=== PATIENT | male | born 1985 | race African-American/Black ===

== ENCOUNTER 2017-05-20 20:33 | Emergency (ER) | payer SELFPAY ==
[~2017-05-20] VITALS: Ht 188 cm; Wt 78.0 kg
[2017-05-20] MEDS ORDERED: LIDOCAINE HCL 1% 20ML VIAL (Pyxis) INJ MC ONE (22:30)
[2017-05-20] MEDS ORDERED: IBUPROFEN 600MG TABLET PO ONE (22:30)
[2017-05-20] MEDS ORDERED: BACITRACIN ZINC OINT UDPKT TOP ONE (22:30)
[2017-05-20 23:02] VITALS: BP 109/52
== END 2017-05-20 23:45 | disposition home or self-care (01) ==
LOC: ER 21:07
DX: S01.81XA Laceration without foreign body of other part of head, initial encounter (principal); S00.83XA Contusion of other part of head, initial encounter; Y08.89XA Assault by other specified means, initial encounter; Y93.89 Activity, other specified; Y92.89 Other specified places as the place of occurrence of the external cause; Y99.8 Other external cause status
CPT/HCPCS: 12011; 99283; J3490; Z7610

== ENCOUNTER 2017-05-24 17:50 | Emergency (ER) | payer SELFPAY ==
[~2017-05-24] VITALS: Ht 188 cm; Wt 79.5 kg
[2017-05-24] MEDS ORDERED: CYCL5TAB PO (18:18)
[2017-05-24 18:24] VITALS: BP 124/60
[2017-05-24] MEDS ORDERED: BACITRACIN ZINC OINT UDPKT TOP ONE (18:30)
== END 2017-05-24 18:48 | disposition home or self-care (01) ==
LOC: ER 17:50
DX: Z48.02 Encounter for removal of sutures (principal)
CPT/HCPCS: 99283; Z7610

== ENCOUNTER 2020-03-07 21:08 | Emergency (ER) | payer BC ==
[~2020-03-07] VITALS: Ht 188 cm; Wt 77.0 kg
[~2020-03-07 21:08] MED LIST: CYCL5TAB PO
[2020-03-07] MEDS ORDERED: KETOROLAC 30MG/ML VIAL IM ONE (22:30)
[2020-03-07] MEDS ORDERED: HYDROCODONE/ACETAMINOPHEN 5/325MG TABLET PO ONE (23:15)
[2020-03-08 00:48] VITALS: BP 135/80
== END 2020-03-08 00:49 | disposition left against medical advice (07) ==
LOC: ER 21:08
DX: S82.141A Displaced bicondylar fracture of right tibia, initial encounter for closed fracture (principal); S60.512A Abrasion of left hand, initial encounter; V23.4XXA Motorcycle driver injured in collision with car, pick-up truck or van in traffic accident, initial encounter; Y93.89 Activity, other specified; Y92.89 Other specified places as the place of occurrence of the external cause; Y99.8 Other external cause status
CPT/HCPCS: 29505; 73130; 73562; 96372; 99284; J1885; L1830